=== PATIENT | female | born 1995 | race Asian ===

== ENCOUNTER 2017-11-30 13:12 | Emergency (ER) | payer OTHER ==
[2017-11-30] MEDS ORDERED: NS 1,000 ML IV ONE (13:38)
[2017-11-30] MEDS ORDERED: METOCLOPRAMIDE 10 MG/2 ML VIAL IVP ONE (13:38)
--- NOTE | 2017-11-30 13:39 | EDPHY ---
H & P Stated Complaint: abd pain Time Seen by Provider: 11/30/17 13:27 HPI/ROS: Chief Complaint: Abdominal pain HPI: 22-year-old G0 woman presenting with 3 days of lower abdominal pain. Patient states that at 1st she thought it was her normal menstrual cramping as she was due for her. But the pain is persisting gotten worse. Right now is a 9 /10. It does, ways but never goes away. It is worse with movement and bumps. Some nausea but no vomiting. No diarrhea or constipation. No vaginal bleeding or discharge. She has an IUD in place for the past year. ROS: 10 point Review of Systems is negative except as noted in the HPI. PMH: Denies Social History: No smoking, no alcohol, no recreational drug use Family History: non-contributory Physical Exam: Gen: Awake, Alert, No Distress HEENT: Nose: no rhinorrhea Eyes: PERRLA, EOMI Mouth: Moist mucosa Neck: Supple, no JVD Chest: nontender, lungs clear to auscultation Heart: S1, S2 normal, no murmur Abd: Soft, patient has right adnexal and right lower quadrant tenderness greater than left, voluntary guarding Back: no CVA tenderness, no midline tenderness Ext: no edema, non-tender Skin: no rash Neuro: CN II-XII intact, Sensation grossly intact, Strength 5/5 in bilateral upper and lower extremities - Personal History LMP (Females 10-55): 22-28 Days Ago Current Tetanus/Diphtheria Vaccine: Unsure Current Tetanus Diphtheria and Acellular Pertussis (TDAP): Unsure - Medical/Surgical History Hx Asthma: No Hx Chronic Respiratory Disease: No Hx Diabetes: No Hx Cardiac Disease: No Hx Renal Disease: No Hx Cirrhosis: No Hx Alcoholism: No Hx HIV/AIDS: No Hx Splenectomy or Spleen Trauma: No Other PMH: denies - Social History Smoking Status: Never smoked Constitutional: Initial Vital Signs Temperature (C) 36.5 C 11/30/17 13:20 Heart Rate 79 11/30/17 13:20 Respiratory Rate 16 11/30/17 13:20 Blood Pressure 89/65 L 11/30/17 13:20 O2 Sat (%) 99 11/30/17 13:20 O2 Delivery Mode Room Air Allergies/Adverse Reactions: No Known Allergies Allergy (Unverified 11/30/17 13:20) Home Medications: Medication Instructions Recorded NK [No Known Home Meds] 11/30/17 Medical Decision Making - Diagnostics Imaging Results: Imaging Impressions Abdomen Ultrasound 11/30/17 14:55 Impression: 1. IUD in good position within the endometrial canal. 2. Incidental follicular cyst on the left as well as small normal follicles noted bilaterally. 3. A dilated appendix is not visualized in the right lower quadrant. However, a normal appendix is also not delineated. Findings discussed with Wilfred Castro MD at 16:16 hour, 11/30/2017. Pelvic/Renal Ultrasound 11/30/17 14:55 Impression: 1. IUD in good position within the endometrial canal. 2. Incidental follicular cyst on the left as well as small normal follicles noted bilaterally. 3. A dilated appendix is not visualized in the right lower quadrant. However, a normal appendix is also not delineated. Findings discussed with Wilfred Castro MD at 16:16 hour, 11/30/2017. ED Course/Re-evaluation: Patient ultrasound results are noted. Blood counts are entirely normal. Repeat examination shows a soft mild right sided tenderness, certainly no surgical abdomen. I have offered her CT scanning to definitively evaluate her appendix and we discussed the risks and benefits. She would like to hold off and have a re-evaluation in 24 hr. I think that this is appropriate course of action. She lives in [place] and will be returning there tomorrow morning. She will present to the physician there for further evaluation. I have cautioned her to return for worsening pain, nausea, vomiting, fevers, chills, or any other concerns. - Data Points Laboratory Results: Laboratory Results 11/30/17 14:00 11/30/17 14:00 11/30/17 11/30/17 11/30/17 14:00 14:00 14:00 WBC 7.87 10^3/uL 10^3/uL (3.80-9.50) RBC 4.22 10^6/uL 10^6/uL (4.18-5.33) Hgb 13.1 g/dL g/dL (12.6-16.3) Hct 38.6 % % (38.0-47.0) MCV 91.5 fL fL (81.5-99.8) MCH 31.0 pg pg (27.9-34.1) MCHC 33.9 g/dL g/dL (32.4-36.7) RDW 12.4 % % (11.5-15.2) Plt Count 232 10^3/uL 10^3/uL (150-400) MPV 9.9 fL fL (8.7-11.7) Neut % (Auto) 62.4 % % (39.3-74.2) Lymph % (Auto) 27.2 % % (15.0-45.0) Wallace % (Auto) 7.6 % % (4.5-13.0) Eos % (Auto) 1.9 % % (0.6-7.6) Baso % (Auto) 0.6 % % (0.3-1.7) Nucleat RBC Rel Count 0.0 % % (0.0-0.2) Absolute Neuts (auto) 4.91 10^3/uL 10^3/uL (1.70-6.50) Absolute Lymphs (auto) 2.14 10^3/uL 10^3/uL (1.00-3.00) Absolute Monos (auto) 0.60 10^3/uL 10^3/uL (0.30-0.80) Absolute Eos (auto) 0.15 10^3/uL 10^3/uL (0.03-0.40) Absolute Basos (auto) 0.05 10^3/uL 10^3/uL (0.02-0.10) Absolute Nucleated RBC 0.00 10^3/uL 10^3/uL (0-0.01) Immature Gran % 0.3 % % (0.0-1.1) Immature Gran # 0.02 10^3/uL 10^3/uL (0.00-0.10) Sodium 138 mEq/L mEq/L (135-145) Potassium 3.7 mEq/L mEq/L (3.3-5.0) Chloride 103 mEq/L mEq/L (97-110) Carbon Dioxide 27 mEq/l mEq/l (22-31) Anion Gap 8 mEq/L mEq/L (8-16) BUN 14 mg/dL mg/dL (7-23) Creatinine 0.6 mg/dL mg/dL (0.6-1.0) Estimated GFR > 60 Glucose 97 mg/dL mg/dL (70-100) Calcium 9.2 mg/dL mg/dL (8.5-10.4) Beta HCG, Qual NEGATIVE Urine Color Urine Appearance Urine pH Ur Specific [place] Urine Protein Urine Ketones Urine Blood Urine Nitrate Urine Bilirubin Urine Urobilinogen Ur Leukocyte Esterase Urine Glucose 11/30/17 13:58 WBC RBC Hgb Hct MCV MCH MCHC RDW Plt Count MPV Neut % (Auto) Lymph % (Auto) Wallace % (Auto) Eos % (Auto) Baso % (Auto) Nucleat RBC Rel Count Absolute Neuts (auto) Absolute Lymphs (auto) Absolute Monos (auto) Absolute Eos (auto) Absolute Basos (auto) Absolute Nucleated RBC Immature Gran % Immature Gran # Sodium Potassium Chloride Carbon Dioxide Anion Gap BUN Creatinine Estimated GFR Glucose Calcium Beta HCG, Qual Urine Color YELLOW Urine Appearance CLEAR Urine pH 5.0 (5.0-7.5) Ur Specific [place] 1.020 (1.002-1.030) Urine Protein NEGATIVE (NEGATIVE) Urine Ketones NEGATIVE (NEGATIVE) Urine Blood NEGATIVE (NEGATIVE) Urine Nitrate NEGATIVE (NEGATIVE) Urine Bilirubin NEGATIVE (NEGATIVE) Urine Urobilinogen NEGATIVE EU EU (0.2-1.0) Ur Leukocyte Esterase NEGATIVE (NEGATIVE) Urine Glucose NEGATIVE (NEGATIVE) Medications Given: Discontinued Medications Sodium Chloride (Ns) 1,000 mls @ 0 mls/hr IV ONCE ONE; Wide Open PRN Reason: Protocol Stop: 11/30/17 13:39 Last Admin: 11/30/17 14:01 Dose: 1,000 mls Metoclopramide HCl (Reglan Injection) 10 mg IVP EDNOW ONE Stop: 11/30/17 13:39 Last Admin: 11/30/17 14:03 Dose: 10 mg Morphine Sulfate (Morphine) 4 mg IVP ONCE ONE Stop: 11/30/17 13:39 Last Admin: 11/30/17 14:03 Dose: 4 mg Departure - Departure Disposition: Home, Routine, Self-Care Clinical Impression: Abdominal pain Condition: Good Instructions: Acute Abdominal Pain (ED) Additional Instructions: Return to the emergency department 24 hr for re-evaluation if her symptoms have not improved. Return immediately if her symptoms get worse. Follow up with primary care physician in 2-3 days for further evaluation. Referrals: NONE *PRIMARY CARE P,. [Primary Care Provider] - As per Instructions
[2017-11-30 14:17] LABS: PLATELET COUNT 232 10^3/uL (150-400)
[2017-11-30 17:05] VITALS: BP 93/56
== END 2017-11-30 17:03 | disposition home or self-care (01) ==
DX: R10.31 Right lower quadrant pain (principal); E86.9 Volume depletion, unspecified
CPT/HCPCS: 96374; J2270; J2765